=== PATIENT | male | born 1950 | race Two or more races ===

== ENCOUNTER 2022-05-17 14:20 | Day surgery (SDC) | payer MEDICARE, OTHER ==
[2022-05-13 10:11] LABS: BASOPHILS # (AUTO) 0.1 X10'3 (0-0.2); BASOPHILS % (AUTO) 0.9 % (0-1); EOSINOPHILS # (AUTO) 0.2 X10'3 (0-0.9); EOSINOPHILS % (AUTO) 2.4 % (0-6); HEMATOCRIT 39.8 % (42.0-52.0); HEMOGLOBIN 13.4 g/dl (14.0-17.9); LYMPHOCYTES # (AUTO) 1.7 X10'3 (1.1-4.8); LYMPHOCYTES % (AUTO) 21.3 % (21-51); MEAN CORPUSCULAR HEMOGLOBIN 28.3 PG (27.0-31.0); MEAN CORPUSCULAR HGB CONC 33.5 g/dL (33.0-36.5); MEAN CORPUSCULAR VOLUME 84.3 FL (78-98); MONOCYTES # (AUTO) 0.7 X10'3 (0-0.9); MONOCYTES % (AUTO) 8.9 % (2-12); NEUTROPHILS # (AUTO) 5.2 X10'3 (1.8-7.7); NEUTROPHILS % (AUTO) 66.5 % (42-75); PLATELET COUNT 166 X10'3 (140-440); RED BLOOD COUNT 4.72 X10'6 (4.70-6.10); RED CELL DISTRIBUTION WIDTH 14.1 % (11.5-14.5); WHITE BLOOD COUNT 7.8 X10'3 (4.5-11.0)
[2022-05-13 10:21] LABS: APTT 27 SECONDS (22-32)
[2022-05-13 10:33] LABS: ALBUMIN 3.6 G/DL (3.4-5.0); ANION GAP 10 (8-16); BLOOD UREA NITROGEN 36 MG/DL (7-18); BUN/CREATININE RATIO 22.1 (5.4-32.0); CALCIUM 9.2 MG/DL (8.5-10.1); CHLORIDE 105 MMOL/L (99-107); CHOL/HDL RATIO 3.3 (0.00-4.99); CHOLESTEROL 109 MG/DL (0-200); CREATININE 1.63 MG/DL (0.60-1.10); GLUCOSE 136 MG/DL (70-104); HDL CHOLESTEROL 33 MG/DL (35-60); LDL CHOLESTEROL 61 MG/DL (50-100); POTASSIUM 4.1 MMOL/L (3.5-5.1); SODIUM 139 MMOL/L (135-145); TOTAL CARBON DIOXIDE 24.2 MMOL/L (24-32); TRIGLYCERIDES 127 MG/DL (20-135); eGFR 42 ML/MIN
[~2022-05-17] VITALS: Ht 172.7 cm; Wt 149.5 kg
[2022-05-17] MEDS ORDERED: diphenhydrAMINE 25mg capsule PO PRN (14:35)
[2022-05-17] MEDS ORDERED: normal saline 1,000 ML IV SCH (14:35)
[2022-05-17] MEDS ORDERED: LORazepam 0.5 MG tablet PO PRN (14:35)
[2022-05-17 14:36] VITALS: BP 133/70
[2022-05-17] MEDS ORDERED: AMLO2.5T2 PO (15:33)
[2022-05-17] MEDS ORDERED: ASPIRIN PO (15:33)
[2022-05-17] MEDS ORDERED: TUMERIC PO (15:33)
[2022-05-17] MEDS ORDERED: CHLO25TA10 PO (15:33)
[2022-05-17] MEDS ORDERED: ATOR40TA PO (15:33)
[2022-05-17] MEDS ORDERED: MULT-1085 PO (15:33)
[2022-05-17] MEDS ORDERED: LORA-512 PO (15:33)
[2022-05-17] MEDS ORDERED: BRIM5DRO16 EACHEYE (15:33)
[2022-05-17] MEDS ORDERED: UBID300C PO (15:33)
[2022-05-17] MEDS ORDERED: METO50TA7 PO (15:33)
[2022-05-17] MEDS ORDERED: LOSA100T57 PO (15:33)
[2022-05-17] MEDS ORDERED: FISH OIL (15:35)
[2022-05-17] MEDS ORDERED: VITAMIN C (15:35)
[2022-05-17] MEDS ORDERED: nitroGLYCERIN-Tridil 50MG/D5W 250 ML IV ONE (16:04)
[2022-05-17] MEDS ORDERED: midazolam 1 mg/ML 2ml injection ONE ×2 (16:04→18:01)
[2022-05-17] MEDS ORDERED: verapamil 2.5 mg/ml inj IV ONE (16:04)
[2022-05-17] MEDS ORDERED: heparin 1,000unit/ml 10ml vial 10 ML ONE (16:05)
[2022-05-17] MEDS ORDERED: iohexol 350MG/ML 100ml bottle IV ONE (16:05)
[2022-05-17] MEDS ORDERED: fentaNYL/PF 50MCG/1 ML 2ML syringe ONE (16:05)
[2022-05-17] MEDS ORDERED: LIDOcaine 1% (10mg/ml) 2ml vial ONE (16:05)
[2022-05-17] MEDS ORDERED: iohexol 350 MG/ML 50ML vial IV ONE (18:09)
[2022-05-17 18:25] VITALS: BP 152/80
[2022-05-17 18:40] VITALS: BP 158/66
[2022-05-17] MEDS ORDERED: HYDROcodone/acetaminophen 5mg/325mg tablet PO PRN (18:45)
[2022-05-17] MEDS ORDERED: HYDROcodone/acetaminophen 10/325mg tab PO PRN (18:45)
[2022-05-17 18:55] VITALS: BP 129/75
[2022-05-17 19:10] VITALS: BP 120/59
[2022-05-17 19:24] VITALS: BP 114/65
== END 2022-05-17 19:55 | disposition home or self-care (01) ==
LOC: SSTAY O 14:20
PROVIDERS: ATTEND Student in an Organized Health Care Education/Training Program
DX: R94.39 Abnormal result of other cardiovascular function study (principal); I10 Essential (primary) hypertension; E78.5 Hyperlipidemia, unspecified; Z79.01 Long term (current) use of anticoagulants; Z79.899 Other long term (current) drug therapy
CPT/HCPCS: 36415; 80048; 80061; 85025; 85610; 85730; 93005; 93458; 99152; C1769; C1894; J1644; J2250; J3010; J3490; J7030; Q0163; Q9967; A4620; A6258; A6402